=== PATIENT | female | born 1955 | race African-American/Black ===

== ENCOUNTER 2017-12-21 03:13 | Emergency (ER) | payer OTHER ==
[~2017-12-21] VITALS: Ht 162.6 cm; Wt 99.8 kg
[2017-12-21] MEDS ORDERED: NEURIN (03:23)
[2017-12-21] MEDS ORDERED: FLUOXETINE HCL20 M1 (03:23)
[2017-12-21] MEDS ORDERED: CYMBALTA60 MG (03:24)
[2017-12-21] MEDS ORDERED: DICLOFENAC SODI50 MG (03:24)
[2017-12-21] MEDS ORDERED: ROXICODONE5 MG (03:25)
[2017-12-21] MEDS ORDERED: NABUMETONE500 MG (03:25)
[2017-12-21] MEDS ORDERED: RESTORIL30 M1 (03:25)
[2017-12-21] MEDS ORDERED: TRAMADOL HCL50 MG (03:25)
[2017-12-21] MEDS ORDERED: PROSCAR5 MG (03:26)
[2017-12-21] MEDS ORDERED: CEVIMELINE HCL30 MG (03:26)
[2017-12-21] MEDS ORDERED: KETO10TA2 PO (08:43)
[2017-12-22] MEDS ORDERED: MEDROLPACK PO (10:54)
== END 2017-12-21 14:04 | disposition home or self-care (01) ==
LOC: ER 03:13
DX: M25.532 Pain in left wrist (principal)

== ENCOUNTER 2017-12-22 08:46 | Emergency (ER) | payer OTHER ==
[~2017-12-22] VITALS: Ht 162.6 cm; Wt 99.8 kg
[~2017-12-22 08:46] MED LIST: CEVIMELINE HCL30 MG; CYMBALTA60 MG; DICLOFENAC SODI50 MG; FLUOXETINE HCL20 M1; KETO10TA2 PO; NABUMETONE500 MG; NEURIN; PROSCAR5 MG; RESTORIL30 M1; ROXICODONE5 MG; TRAMADOL HCL50 MG
[2017-12-22] MEDS ORDERED: MEDROLPACK PO (10:54)
== END 2017-12-22 11:17 | disposition home or self-care (01) ==
LOC: ER 08:46
DX: S62.112D Displaced fracture of triquetrum [cuneiform] bone, left wrist, subsequent encounter for fracture with routine healing (principal); G89.11 Acute pain due to trauma; M25.532 Pain in left wrist; W22.8XXD Striking against or struck by other objects, subsequent encounter

== ENCOUNTER 2017-12-25 15:34 | Outpatient (CLI) | payer OTHER ==
[~2017-12-25 15:34] MED LIST changes: +MEDROLPACK PO
== END 2017-12-25 16:00 | disposition home or self-care (01) ==
LOC: SONOGRAMA 15:34
DX: M79.642 Pain in left hand (principal)

== ENCOUNTER 2018-01-18 12:07 | Outpatient (CLI) | payer OTHER | END 2018-01-18 16:23 | disposition home or self-care (01) | LOC: RAD 501 12:07 | DX: M25.512 Pain in left shoulder (principal) ==

== ENCOUNTER 2018-02-04 13:46 | Inpatient (IN) | payer OTHER ==
[~2018-02-04] VITALS: Ht 162.6 cm; Wt 99.8 kg
[2018-02-14] MEDS ORDERED: CYMBALTA60 MG PO (11:20)
[2018-02-14] MEDS ORDERED: OMEPRAZOLE20 MG PO (11:20)
[2018-02-14] MEDS ORDERED: TRAM1TAB98 PO (11:20)
[2018-02-14] MEDS ORDERED: EVOXAC30 MG PO (11:20)
== END 2018-02-15 13:37 | DRG 470 ==
LOC: SURH 02-13 09:21 → O/R 02-13 09:21 → SURH 02-13 10:00
PROVIDERS: Orthopaedic Surgery
PROC: 0SRD0J9 Replacement of Left Knee Joint with Synthetic Substitute, Cemented, Open Approach (ICD-10-PCS; principal; 2018-02-13 10:00)
PROC: 30233N1 Transfusion of Nonautologous Red Blood Cells into Peripheral Vein, Percutaneous Approach (ICD-10-PCS; 2018-02-14)
DX: M17.12 Unilateral primary osteoarthritis, left knee (principal); D62 Acute posthemorrhagic anemia; E66.8 Other obesity

== ENCOUNTER 2018-03-01 11:58 | Emergency (ER) | payer OTHER ==
[~2018-03-01] VITALS: Ht 162.6 cm; Wt 99.8 kg
[~2018-03-01 11:58] MED LIST changes: +CYMBALTA60 MG PO; +EVOXAC30 MG PO; +OMEPRAZOLE20 MG PO; +TRAM1TAB98 PO
== END 2018-03-01 15:55 | disposition home or self-care (01) ==
LOC: ER 11:58
DX: T81.31XA Disruption of external operation (surgical) wound, not elsewhere classified, initial encounter (principal); G89.18 Other acute postprocedural pain; Z96.652 Presence of left artificial knee joint; D62 Acute posthemorrhagic anemia; E66.8 Other obesity; G62.89 Other specified polyneuropathies; D64.89 Other specified anemias; M13.862 Other specified arthritis, left knee

== ENCOUNTER 2018-03-22 10:13 | Inpatient (IN) | payer OTHER ==
[~2018-03-22] VITALS: Ht 162.6 cm; Wt 99.8 kg
[2018-03-26] MEDS ORDERED: BACTRIM DS TAB1 EACH PO (11:11)
[2018-03-26] MEDS ORDERED: ULTRAM50 MG PO (11:12)
[2018-03-26] MEDS ORDERED: Tussi-Organidin Dm-S PO (11:24)
== END 2018-03-26 13:43 | disposition home or self-care (01) | DRG 464 ==
LOC: ER 10:13 → SEC-K 12:45 → O/R 14:30 → SURH 18:14
PROVIDERS: Orthopaedic Surgery
PROC: 0JQP3ZZ Repair Left Lower Leg Subcutaneous Tissue and Fascia, Percutaneous Approach (ICD-10-PCS; 2018-03-22)
PROC: 8E0YXY8 Suture Removal from Lower Extremity (ICD-10-PCS; 2018-03-22)
PROC: 0JBP0ZZ Excision of Left Lower Leg Subcutaneous Tissue and Fascia, Open Approach (ICD-10-PCS; principal; 2018-03-22 14:00)
DX: M17.12 Unilateral primary osteoarthritis, left knee (principal); T81.31XA Disruption of external operation (surgical) wound, not elsewhere classified, initial encounter; D62 Acute posthemorrhagic anemia; Y83.8 Other surgical procedures as the cause of abnormal reaction of the patient, or of later complication, without mention of misadventure at the time of the procedure; Y92.098 Other place in other non-institutional residence as the place of occurrence of the external cause; Z96.652 Presence of left artificial knee joint; Z98.84 Bariatric surgery status; E66.8 Other obesity; G57.83 Other specified mononeuropathies of bilateral lower limbs

== ENCOUNTER 2020-09-23 09:43 | Outpatient (CLI) | payer OTHER ==
[~2020-09-23 09:43] MED LIST changes: +BACTRIM DS TAB1 EACH PO; +Tussi-Organidin Dm-S PO; +ULTRAM50 MG PO
== END 2020-09-23 09:50 | disposition home or self-care (01) ==
LOC: RX STUDY 09:43
DX: K21.9 Gastro-esophageal reflux disease without esophagitis (principal); K44.9 Diaphragmatic hernia without obstruction or gangrene; Z98.84 Bariatric surgery status

== ENCOUNTER 2021-08-04 09:42 | Inpatient (IN) | payer OTHER ==
[~2021-08-04] VITALS: Ht 162.6 cm; Wt 95.3 kg
[2021-08-04] MEDS ORDERED: CARVEDILOL25 M1 PO (15:48)
[2021-08-04] MEDS ORDERED: ADULT LOW DOSE81 M1 PO (15:48)
[2021-08-04] MEDS ORDERED: LASIX40 MG PO (15:48)
[2021-08-04] MEDS ORDERED: POTAS PO (15:49)
[2021-08-04] MEDS ORDERED: NEURONTIN300 MG PO (15:49)
[2021-08-04] MEDS ORDERED: [UNRECOGNIZED DRUG - OTHER] PO (15:50)
[2021-08-09] MEDS ORDERED: RETACRIT10000 UNIT (07:56)
[2021-08-09] MEDS ORDERED: ATORVASTATIN CA20 MG (07:57)
[2021-08-09] MEDS ORDERED: CARVEDILOL6.25 M1 (07:57)
[2021-08-09] MEDS ORDERED: RESTASIS1 EACH (07:58)
[2021-08-09] MEDS ORDERED: RESTORIL30 MG (07:59)
[2021-08-09] MEDS ORDERED: BUMETANIDE1 MG (07:59)
[2021-08-09] MEDS ORDERED: CLONAZEPAM0.5 MG (07:59)
[2021-08-09] MEDS ORDERED: POTASSIUM99 M1 (08:00)
== END 2021-08-13 17:58 | DRG 983 ==
LOC: SURH 08-08 08:42 → SURG 08-08 08:42 → SURH 08-10 11:00 → SURG 08-13 17:58
PROVIDERS: ADMIT Internal Medicine Geriatric Medicine; ATTEND Internal Medicine Geriatric Medicine
PROC: 30243N1 Transfusion of Nonautologous Red Blood Cells into Central Vein, Percutaneous Approach (ICD-10-PCS; principal; 2021-08-08)
PROC: 0SRC0J9 Replacement of Right Knee Joint with Synthetic Substitute, Cemented, Open Approach (ICD-10-PCS; 2021-08-10)
PROC: 05HY33Z Insertion of Infusion Device into Upper Vein, Percutaneous Approach (ICD-10-PCS; 2021-08-10)
DX: D64.9 Anemia, unspecified (principal); M17.11 Unilateral primary osteoarthritis, right knee; M85.661 Other cyst of bone, right lower leg; D62 Acute posthemorrhagic anemia; Z20.822 Contact with and (suspected) exposure to COVID-19